=== PATIENT | male | born 1985 | race African-American/Black ===

== ENCOUNTER 2017-06-11 11:38 | Emergency (ER) | payer OTHER ==
[~2017-06-11] VITALS: Ht 180.3 cm; Wt 80.8 kg
[~2017-06-11 11:38] MED LIST: CLEOCIN300 MG PO; FLEXERIL5 MG PO; MOBIC15 MG PO; NAPROSYN500 MG PO; NOHOMEMEDS; NORCO 5/3251 TABLET PO; PREDNISONE10 MG PO; QUETIAPINE FUM300 MG PO; TINACTIN15 GM TP
[2017-06-11] MEDS ORDERED: FLEXERIL10 MG PO (15:56)
[2017-06-11] MEDS ORDERED: NAPROSYN500 MG PO (15:56)
[2017-06-11 16:09] VITALS: BP 122/69
== END 2017-06-11 16:09 | disposition home or self-care (01) ==
LOC: EME 11:38
DX: S00.03XA Contusion of scalp, initial encounter (principal); M50.222 Other cervical disc displacement at C5-C6 level; W22.09XA Striking against other stationary object, initial encounter; Y93.02 Activity, running; Y92.009 Unspecified place in unspecified non-institutional (private) residence as the place of occurrence of the external cause; F17.200 Nicotine dependence, unspecified, uncomplicated
CPT/HCPCS: 70450; 72125; 99281; 99285